=== PATIENT | female | born 1955 | race Caucasian/White ===

== ENCOUNTER 2021-07-19 13:05 | Outpatient (REF) | payer MEDICAID, SELFPAY ==
--- NOTE | 2021-07-19 10:41 | SKI_PTH ---
PATIENT: Alissa Vazquez LOC: [facility] U#:[id number] AGE/SX: 65/F ROOM: RE07/19/[address]: YUSRA Ge : 1955 BED: DIS: 07/19/2021 SPEC #: [id number] RECD: 07/19/21 17:59 STATUS: MOISE REQ #: [id number] LAUREN: 07/19/21 10:[address]: Pradeep Weinstein DEPT: Surgical Specimen RECD BY: Alisa Arellano ENTERED: 07/19/21 17:59 SP TYPE: ASHLEY NICHOLAS DR: Coy Nichols Tissues: 1 - SKIN BIOPSY(SHAVE/PUNCH) Procedures: SKIN LEVEL 4 Comments: [id number]
== END 2021-07-19 13:06 | disposition home or self-care (01) ==
LOC: LBN 13:05
PROVIDERS: PCP Family Medicine; Visit Provider Physician Assistant
DX: L57.0 Actinic keratosis (principal)
CPT/HCPCS: 88305